=== PATIENT | female | born 1985 | race Caucasian/White ===

== ENCOUNTER 2023-11-05 08:20 | Emergency (ER) | payer SELFPAY | END 2023-11-05 10:52 | disposition home or self-care (01) | LOC: ERS 08:20 | DX: M25.562 Pain in left knee (principal); G47.00 Insomnia, unspecified; R30.0 Dysuria | CPT/HCPCS: 80306; 81001 ==

== ENCOUNTER 2023-11-05 12:23 | Emergency (ER) | payer SELFPAY | END 2023-11-05 13:00 | LOC: ERS 12:23 | CPT/HCPCS: 99282 ==